=== PATIENT | male | born 1970 | race African-American/Black ===

== ENCOUNTER → 2021-10-30 | Outpatient (CLI) | payer BC ==
[~2021-10-30] MED LIST: CRESTOR5 MG PO; CYCL10TA19 PO; DICL75TA PO; OXYC-325 PO
== END ==
LOC: LAB 14:58
PROVIDERS: ATTEND Surgery
DX: Z01.812 Encounter for preprocedural laboratory examination (principal); Z20.822 Contact with and (suspected) exposure to COVID-19; K46.9 Unspecified abdominal hernia without obstruction or gangrene
CPT/HCPCS: U0003

== ENCOUNTER 2021-11-02 06:11 | Day surgery (SDC) | payer BC ==
[~2021-11-02] VITALS: Ht 170.2 cm; Wt 85.5 kg
[~2021-11-02 06:11] MED LIST changes: +HYDROmorphone 2 MG/ML INJ. IVP PRN; +IV RINGERS,LACTATED 1000ML 1,000 ML IV SCH; +MORPHINE SULFATE 2 MG/ML INJ. IVP PRN; -OXYC-325 PO; +PROCHLORPERAZINE 10 MG/2 ML VIAL. IVP PRN; +fentaNYL PF VIAL 100 MCG/2 ML VIAL IVP PRN
[2021-11-02 06:40] VITALS: BP 143/82
[2021-11-02] MEDS ORDERED: ROCURONIUM 50 MG/5 ML VIAL. ONE ×2 (07:17→08:24)
[2021-11-02] MEDS ORDERED: DEXAMETHASONE SOD PHOS 4 MG/ML VIAL ONE (07:17)
[2021-11-02] MEDS ORDERED: LIDOCAINE 2% PF 5 ML VIAL. ONE (07:17)
[2021-11-02] MEDS ORDERED: PROPOFOL 10 MG/ML (20ML) VIAL. IV ONE (07:17)
[2021-11-02] MEDS ORDERED: ONDANSETRON PF 4 MG/2 ML VIAL. ONE (07:17)
[2021-11-02] MEDS ORDERED: fentaNYL PF VIAL 100 MCG/2 ML VIAL ONE (07:18)
[2021-11-02] MEDS ORDERED: MIDAZOLAM HCL/PF 2 MG/2 ML VIAL. ONE (07:18)
[2021-11-02] MEDS ORDERED: HYDROmorphone 2 MG/ML INJ. ONE (08:11)
[2021-11-02] MEDS ORDERED: NEOSTIGMINE METHYLSULFATE 5 MG/5 ML SYRINGE. ONE (08:32)
[2021-11-02] MEDS ORDERED: GLYCOPYRROLATE 1 MG/5 ML VIAL. ONE (08:32)
[2021-11-02] MEDS ORDERED: BUPIVACAINE-EPI 0.25%-1:200000 MPF 30 ML VIAL. ONE (08:49)
--- NOTE | 2021-11-02 09:07 | PDOC4 ---
Operative Note Operative Note Operative Note: Preoperative Diagnosis: Ventral hernia Postoperative Diagnosis: Same Procedure: Ventral hernia repair with mesh Surgeon: Reynaldo Tape Editor: Kelsey Elmore MS 3; Juan C GOVEA Anesthesia: General EBL: 10 mL Specimen: None Drains: None Complications: None Indication: The patient is a 50-year-old male who is referred with a ventral hernia. He was offered surgical repair. The risks of surgery were discussed which include bleeding, infection, recurrence, pain, anesthetic risk, mesh reaction, potential need for additional surgery procedure. He understands and would like to proceed. Description: The patient was taken to the operating room and placed supine on the operating table. General anesthesia was performed. The abdomen was prepped with ChloraPrep and draped with sterile towels, sheets, and an Ioban. An incision was made overlying the hernia which was superior to the umbilicus. Cautery dissection was carried down through the subcutaneous tissues to the fascia. The hernia defect was readily identified and the edges were clarified. A preperitoneal plane was then developed circumferentially. With digital dissection the plane was extended in all directions. A medium sized Ventralex ST mesh was then selected for the repair. The mesh was placed in the preperitoneal plane. The mesh was sutured into position at the 12, 3, 6, 9:00 positions using 0 Prolene in a horizontal fashion. The fascial edges were closed over the mesh with 0 Prolene. The deep subcutaneous tissues were approximated with 0 Vicryl. The superficial subcutaneous tissues were closed with 3-0 Vicryl. Skin was approximated with 4 Monocryl and infiltrated with quarter percent Marcaine with epinephrine. Steri-Strips and a sterile dressing were applied. The patient tolerated the procedure well and was sent to the recovery room in stable condition. At the end of the case all counts were correct. TIGRE BHATT MD November 02, 2021 09:07
[2021-11-02] MEDS ORDERED: OXYC-325 PO (09:10)
--- NOTE | 2021-11-02 09:12 | DISCH ---
DISCHARGE INSTRUCTIONS Condition on Discharge Condition on Discharge: Stable Activity After Discharge Activity Instructions for Disc: Other, see below (No lifting over 20 lbs or strenuous activity X 6 weeks, no driving while taking pain meds) Diet after Discharge Diet after Discharge: Regular Wound Incision Care Wound/Incision Care: Other, see below (keep dressing clean and dry X 72 hours, may then remove and shower) Follow-Up Follow up with: Dr Bhatt in office in 2 weeks, call for appt [phone] TIGRE BHATT MD November 02, 2021 09:12
[2021-11-02] MEDS ORDERED: oxyCODONE/APAP 5/325 1 TAB TABLET PO ONE (09:45)
[2021-11-02 09:51] VITALS: BP 157/85
== END 2021-11-02 10:25 | disposition home or self-care (01) ==
LOC: SURG 06:11
PROVIDERS: ATTEND Surgery
DX: K43.9 Ventral hernia without obstruction or gangrene (principal); E78.00 Pure hypercholesterolemia, unspecified; Z79.899 Other long term (current) drug therapy; Z98.890 Other specified postprocedural states
CPT/HCPCS: 49560; 49568; A4364; A4930; A6219; C1781; J0690; J1100; J1170; J2405; J2704; J2710; J3010; J3490; A4452; J2250